=== PATIENT | female | born 1950 | race Caucasian/White ===

== ENCOUNTER → 2019-07-18 | Outpatient (CLI) | payer MEDICARE, OTHER ==
[~2019-07-18] MED LIST: ATOR40TA75 PO; ECOT81TA5 PO; MULTCAP PO; TIOT18INH INH
== END ==
LOC: M LABSMTC 11:46
PROVIDERS: ATTEND Anesthesiology
DX: Z01.818 Encounter for other preprocedural examination (principal); Z11.59 Encounter for screening for other viral diseases
CPT/HCPCS: C9803; U0003

== ENCOUNTER 2019-07-21 12:18 | Day surgery (SDC) | payer MEDICARE, OTHER ==
[~2019-07-21] VITALS: Ht 157.5 cm; Wt 69.3 kg
[~2019-07-21 12:18] MED LIST changes: +NS 1,000 ML IV SCH; +propofoL 200 MG/20 ML VIAL As Ordered ONE
[2019-07-21] MEDS ORDERED: LIDOCAINE 2% 100MG/5ML SDV (FOR ANES.) As Ordered ONE (12:50)
--- NOTE | 2019-07-21 13:35 | ROOR ---
Patient Name: Pearl Rodrigez Procedure Date: 07/21/2019 12:48 PM Date of : 1950 Age: 69 Room: [facility] Gender: Female Note Status: Finalized Procedure: Total Colonoscopy to Cecum + Hot Snare Polypectomy + Hemoclip Indications: Positive Cologuard test Providers: Atilio Mccain MD Referring MD: Karol Sebastian NP Requesting Provider: Medicines: Monitored Anesthesia Care Complications: No immediate complications. Procedure: Pre-Anesthesia Assessment: - The heart rate, respiratory rate, oxygen saturations, blood pressure, adequacy of pulmonary ventilation, and response to care were monitored throughout the procedure. The colonoscopy was performed without difficulty. The patient tolerated the procedure well. The quality of the bowel preparation was good. The Colonoscope was introduced through the anus and advanced to the cecum, identified by appendiceal orifice and ileocecal valve. Findings: The perianal and digital rectal examinations were normal. Non-bleeding internal hemorrhoids were found during retroflexion. The hemorrhoids were small and Grade I (internal hemorrhoids that do not prolapse). Multiple small and large-mouthed diverticula were found in the recto-sigmoid colon, sigmoid colon and descending colon. A small polyp was found at 10 cm proximal to the anus. The polyp was sessile. The polyp was removed with a hot snare. Resection and retrieval were complete. A medium polyp was found at 30 cm proximal to the anus. The polyp was semi-pedunculated. The polyp was removed with a hot snare. Resection and retrieval were complete. To prevent bleeding after the polypectomy, one hemostatic clip was successfully placed (MR conditional). There was no bleeding at the end of the procedure. The exam was otherwise without abnormality on direct and retroflexion views. Impression: - Non-bleeding internal hemorrhoids. - Diverticulosis in the recto-sigmoid colon, in the sigmoid colon and in the descending colon. - One small polyp at 10 cm proximal to the anus, removed with a hot snare. Resected and retrieved. - One medium polyp at 30 cm proximal to the anus, removed with a hot snare. Resected and retrieved. Clip (MR conditional) was placed. - The examination was otherwise normal on direct and retroflexion views. - The exam was otherwise normal to the cecum. Recommendation: - Patient has a contact number available for emergencies. The signs and symptoms of potential delayed complications were discussed with the patient. Return to normal activities tomorrow. Written discharge instructions were provided to the patient. - High fiber diet. - Discharge patient to home. - Continue present medications. - Await pathology results. - Telephone GI clinic for pathology results in 1 week. - Repeat colonoscopy in 4 years for surveillance based on pathology results. - Return to referring physician. - The findings and recommendations were discussed with the patient's family. Atilio Mccain MD Atilio Mccain MD 07/21/2019 1:35:21 PM Electronically signed by Atilio Mccain MD Number of Addenda: 0 Note Initiated On: 07/21/2019 12:48 PM Estimated Blood Loss: Estimated blood loss: none.
[2019-07-21 14:30] VITALS: BP 159/77
== END 2019-07-21 15:10 | disposition home or self-care (01) ==
LOC: M OPP 12:18
PROVIDERS: ATTEND Internal Medicine Gastroenterology
DX: D12.6 Benign neoplasm of colon, unspecified (principal); K64.0 First degree hemorrhoids; K57.30 Diverticulosis of large intestine without perforation or abscess without bleeding; R19.5 Other fecal abnormalities; J44.9 Chronic obstructive pulmonary disease, unspecified; F17.210 Nicotine dependence, cigarettes, uncomplicated; Z79.82 Long term (current) use of aspirin; Z79.899 Other long term (current) drug therapy; Z88.0 Allergy status to penicillin; Z88.5 Allergy status to narcotic agent

== ENCOUNTER → 2020-06-05 | Outpatient (CLI) | payer MEDICARE, OTHER ==
[~2020-06-05] MED LIST changes: -NS 1,000 ML IV SCH; -propofoL 200 MG/20 ML VIAL As Ordered ONE
--- NOTE | 2020-06-05 12:18 | REP ---
INDICATION: PAIN. COMPARISON: None TECHNIQUE: Three views of the right shoulder were performed. FINDINGS: The acromioclavicular and glenohumeral relationships are within normal limits. There is no acute fracture or destructive osseous lesion. IMPRESSION: Negative exam <Electronically signed by Darius Bear > 06/05/20 1216
== END ==
LOC: M WUC 11:30
PROVIDERS: ATTEND Nurse Practitioner Adult Health
DX: M25.511 Pain in right shoulder (principal)

== ENCOUNTER → 2021-01-03 | Outpatient (CLI) | payer MEDICARE, OTHER ==
--- NOTE | 2021-01-03 10:59 | REPMRS ---
Patient History The patient states she has not had a clinical breast exam in over a year. Patient is postmenopausal. No known family history of cancer. No Hormone Replacement Therapy Tomosynthesis is performed. Volpara breast density is b. [facility] lifetime risk of breast cancer 3.8%. Patient states no breast complaints today. Patient has signed MRS History Sheet. Digital Woman Screen Mammo: January 03, 2021 - Exam #: [id number] Bilateral CC and MLO view(s) were taken. Technologist: [employer] [facility] [employer] Front Office Assistant FINDINGS: There are scattered fibroglandular densities. There has been no change in the appearance of the mammogram from the prior studies. There is a mild amount of residual fibroglandular tissue which is fairly symmetric. There is no interval development of dominant mass, architectural distortion, or clustered microcalcification suggestive of malignancy. Assessment: BI-RADS/ACR category 1 mammogram. Negative Mammogram. Recommendation Routine screening mammogram in 1 year (for women over age 40). This mammogram was interpreted with the aid of an FDA-approved computer-aided dectection system. Electronically Signed By: Jak Saba MD 01/03/21 0486
== END ==
LOC: M WHC 09:06
PROVIDERS: ATTEND Nurse Practitioner Adult Health
DX: Z12.31 Encounter for screening mammogram for malignant neoplasm of breast (principal); Z78.0 Asymptomatic menopausal state

== ENCOUNTER → 2021-07-03 | Outpatient (CLI) | payer MEDICARE, OTHER | LOC: M RAD 08:29 | PROVIDERS: ATTEND Nurse Practitioner Adult Health | DX: Z12.2 Encounter for screening for malignant neoplasm of respiratory organs (principal); F17.210 Nicotine dependence, cigarettes, uncomplicated; R91.8 Other nonspecific abnormal finding of lung field; N20.0 Calculus of kidney ==

== ENCOUNTER → 2022-01-05 | Outpatient (CLI) | payer MEDICARE, OTHER | LOC: M WHC 09:37 | PROVIDERS: ATTEND Nurse Practitioner Adult Health | DX: Z12.31 Encounter for screening mammogram for malignant neoplasm of breast (principal) ==

== ENCOUNTER → 2022-01-06 | Outpatient (CLI) | payer MEDICARE, OTHER | LOC: M RAD 12:46 | PROVIDERS: ATTEND Internal Medicine Pulmonary Disease | DX: R91.8 Other nonspecific abnormal finding of lung field (principal); J47.9 Bronchiectasis, uncomplicated ==

== ENCOUNTER → 2023-01-11 | Outpatient (CLI) | payer MEDICARE, OTHER | LOC: M WHC 09:27 | PROVIDERS: ATTEND Nurse Practitioner Adult Health | DX: Z12.31 Encounter for screening mammogram for malignant neoplasm of breast (principal) ==

== ENCOUNTER → 2023-02-01 | Outpatient (CLI) | payer MEDICARE, OTHER | LOC: M PLAIMG 10:49 | PROVIDERS: ATTEND Internal Medicine Pulmonary Disease | DX: R91.8 Other nonspecific abnormal finding of lung field (principal); J43.9 Emphysema, unspecified; I25.10 Atherosclerotic heart disease of native coronary artery without angina pectoris; N20.0 Calculus of kidney; R59.0 Localized enlarged lymph nodes; K57.90 Diverticulosis of intestine, part unspecified, without perforation or abscess without bleeding; E27.9 Disorder of adrenal gland, unspecified ==

== ENCOUNTER → 2023-03-15 | Outpatient (CLI) | payer MEDICARE, OTHER | LOC: M PLARAD 12:47 | PROVIDERS: ATTEND Internal Medicine Pulmonary Disease | DX: R91.1 Solitary pulmonary nodule (principal) | CPT/HCPCS: 78815; A9552 ==

== ENCOUNTER → 2023-04-02 | Outpatient (CLI) | payer MEDICARE, OTHER | LOC: M PLAIMG 08:57 | PROVIDERS: ATTEND Internal Medicine Pulmonary Disease | DX: R91.8 Other nonspecific abnormal finding of lung field (principal) ==

== ENCOUNTER 2023-04-14 06:48 | Day surgery (SDC) | payer MEDICARE, OTHER ==
[~2023-04-14] VITALS: Ht 157.5 cm; Wt 67.6 kg
[~2023-04-14 06:48] MED LIST changes: +ACET1TAB55 PO; +OMEGCAP4 PO; +SODI2OPD OU; +THERTAB52 PO; +TREL1AER
[2023-04-14] MEDS ORDERED: EPINEPHrine 1MG/10ML SYRINGE 1.5IN As Ordered ONE (07:08)
[2023-04-14] MEDS: LR 1,000 ML IV SCH (07:42)
[2023-04-14] MEDS ORDERED: fentaNYL 100 MCG/2 ML INJECTION As Ordered ONE (08:07)
[2023-04-14] MEDS ORDERED: KETOROLAC 60MG 2ML VIAL As Ordered ONE (08:08)
[2023-04-14] MEDS ORDERED: LIDOCAINE 2% 100MG/5ML SDV (FOR ANES.) As Ordered ONE (08:08)
[2023-04-14] MEDS ORDERED: MIDAZOLAM INJ 2MG/2ML VIAL As Ordered ONE (08:08)
[2023-04-14] MEDS ORDERED: SUGAMMADEX SODIUM 500 MG/5 ML VIAL (BRIDION) As Ordered ONE (08:08)
[2023-04-14] MEDS ORDERED: propofoL 200 MG/20 ML VIAL As Ordered ONE (08:08)
[2023-04-14] MEDS ORDERED: ROCURONIUM BROMIDE 50MG/5ML VIAL As Ordered ONE (08:08)
[2023-04-14] MEDS ORDERED: ONDANSETRON 4MG 2ML VIAL As Ordered ONE (08:08)
[2023-04-14] MEDS: LIDOCAINE PRES-FREE 2% 10ML AMP INH ONE (08:38)
[2023-04-14] MEDS: ALBUTEROL SULFATE 2.5MG/0.5ML INH NEB SOLN INH ONE (08:38)
[2023-04-14] MEDS: CETACAINE SPRAY 5GM As Ordered ONE (09:20)
[2023-04-14] MEDS ORDERED: LR 1,000 ML IV SCH (10:10)
[2023-04-14] MEDS ORDERED: ONDANSETRON 4MG 2ML VIAL IV PRN (10:10)
[2023-04-14] MEDS ORDERED: fentaNYL 100 MCG/2 ML INJECTION IV PRN (10:10)
[2023-04-14 11:15] VITALS: BP 148/72; TEMP 97.6; O2SAT 95
== END 2023-04-14 11:15 | disposition home or self-care (01) ==
LOC: M SDC 06:48
PROVIDERS: ATTEND Internal Medicine Pulmonary Disease
DX: R91.8 Other nonspecific abnormal finding of lung field (principal); J43.1 Panlobular emphysema; F17.210 Nicotine dependence, cigarettes, uncomplicated; E04.1 Nontoxic single thyroid nodule; Z79.899 Other long term (current) drug therapy; I10 Essential (primary) hypertension; E78.5 Hyperlipidemia, unspecified; K21.9 Gastro-esophageal reflux disease without esophagitis; N20.0 Calculus of kidney; Z88.0 Allergy status to penicillin; Z88.5 Allergy status to narcotic agent
CPT/HCPCS: 31623; 31624; 31628; 71045; 76000; 88104; 88108; 88305; 88313; 93005; J0171; J2250; J2405; J3010

== ENCOUNTER 2023-05-21 13:40 | Outpatient (RCR) | payer MEDICARE, OTHER | END 2023-05-23 | LOC: M ONCR 13:40 | PROVIDERS: ATTEND General Practice | DX: Z51.0 Encounter for antineoplastic radiation therapy (principal); C34.11 Malignant neoplasm of upper lobe, right bronchus or lung ==

== ENCOUNTER → 2023-06-02 | Outpatient (CLI) | payer MEDICARE, OTHER | LOC: M RAD 13:59 | PROVIDERS: ATTEND Otolaryngology | DX: D44.0 Neoplasm of uncertain behavior of thyroid gland (principal) ==

== ENCOUNTER → 2023-08-02 | Outpatient (CLI) | payer MEDICARE, OTHER ==
[~2023-08-02] MED LIST changes: +ISOVUE-370 76% 100ML VIAL As Ordered ONE
== END ==
LOC: M RAD 09:51
PROVIDERS: ATTEND General Practice
DX: C34.11 Malignant neoplasm of upper lobe, right bronchus or lung (principal); J43.9 Emphysema, unspecified
CPT/HCPCS: 36415; 71260; 80053; Q9967

== ENCOUNTER → 2023-08-02 | Outpatient (CLI) | payer MEDICARE, OTHER ==
[~2023-08-02] MED LIST changes: -ISOVUE-370 76% 100ML VIAL As Ordered ONE
[2023-08-02 10:25] LABS: ALBUMIN 3.7 G/DL (3.2-5.2); ALKALINE PHOSPHATASE 73 U/L (46-116); ALT/SGPT 36 U/L (7.0-40); AST/SGOT 21 U/L (<34); BILIRUBIN,TOTAL 0.5 MG/DL (0.3-1.2); BLOOD UREA NITROGEN 14 MG/DL (9-23); CALCIUM LEVEL 9.7 MG/DL (8.3-10.6); CARBON DIOXIDE LEVEL 30 MMOL/L (20-31); CHLORIDE LEVEL 108 MMOL/L (98-107); CREATININE FOR GFR 0.67 MG/DL (0.55-1.30); GLOMERULAR FILTRATION RATE > 60.0 (>39); GLUCOSE, FASTING 109 MG/DL (74-106); POTASSIUM SERUM 4.6 MMOL/L (3.5-5.1); SODIUM LEVEL 141 MMOL/L (136-145); TOTAL PROTEIN 6.9 G/DL (5.7-8.2)
== END ==
LOC: M ONCM 09:17
PROVIDERS: ATTEND General Practice
DX: C34.90 Malignant neoplasm of unspecified part of unspecified bronchus or lung (principal)

== ENCOUNTER → 2023-08-06 | Outpatient (CLI) | payer MEDICARE, OTHER | LOC: M ONCR 13:46 | PROVIDERS: ATTEND General Practice | DX: C34.11 Malignant neoplasm of upper lobe, right bronchus or lung (principal); Z92.3 Personal history of irradiation; F17.210 Nicotine dependence, cigarettes, uncomplicated; Z71.2 Person consulting for explanation of examination or test findings; Z88.0 Allergy status to penicillin; Z88.1 Allergy status to other antibiotic agents; Z88.5 Allergy status to narcotic agent; Z79.899 Other long term (current) drug therapy; Z79.51 Long term (current) use of inhaled steroids ==

== ENCOUNTER → 2024-01-19 | Outpatient (CLI) | payer MEDICARE, OTHER | LOC: M WHC 10:16 | PROVIDERS: ATTEND Nurse Practitioner Adult Health | DX: Z12.31 Encounter for screening mammogram for malignant neoplasm of breast (principal); Z13.820 Encounter for screening for osteoporosis; M85.89 Other specified disorders of bone density and structure, multiple sites; R92.313 Mammographic fatty tissue density, bilateral breasts ==

== ENCOUNTER → 2024-02-02 | Outpatient (CLI) | payer MEDICARE, OTHER | LOC: M RAD 12:28 | PROVIDERS: ATTEND General Practice | DX: C34.11 Malignant neoplasm of upper lobe, right bronchus or lung (principal) ==

== ENCOUNTER → 2024-02-09 | Outpatient (CLI) | payer MEDICARE, OTHER | LOC: M ONCR 13:47 | PROVIDERS: ATTEND General Practice | DX: C34.11 Malignant neoplasm of upper lobe, right bronchus or lung (principal); J44.9 Chronic obstructive pulmonary disease, unspecified; F17.218 Nicotine dependence, cigarettes, with other nicotine-induced disorders; Z92.3 Personal history of irradiation; Z88.0 Allergy status to penicillin; Z88.1 Allergy status to other antibiotic agents; Z88.5 Allergy status to narcotic agent; Z79.51 Long term (current) use of inhaled steroids; Z79.899 Other long term (current) drug therapy ==

== ENCOUNTER → 2024-04-06 | Outpatient (CLI) | payer MEDICARE, OTHER | LOC: M WUC 14:13 | PROVIDERS: ATTEND Nurse Practitioner Adult Health | DX: Z85.118 Personal history of other malignant neoplasm of bronchus and lung (principal) ==

== ENCOUNTER → 2024-04-14 | Outpatient (CLI) | payer MEDICARE, OTHER | LOC: M ONCR 14:53 | PROVIDERS: ATTEND General Practice | DX: R20.8 Other disturbances of skin sensation (principal); Z92.3 Personal history of irradiation ==

== ENCOUNTER → 2024-07-05 | Outpatient (CLI) | payer MEDICARE, OTHER | LOC: M RAD 14:50 | PROVIDERS: ATTEND Otolaryngology | DX: E04.1 Nontoxic single thyroid nodule (principal) ==

== ENCOUNTER → 2024-11-14 | Outpatient (CLI) | payer MEDICARE, OTHER | LOC: M RAD 16:48 | PROVIDERS: ATTEND Internal Medicine Pulmonary Disease | DX: R91.8 Other nonspecific abnormal finding of lung field (principal) ==

== ENCOUNTER 2024-11-29 16:22 | Emergency (ER) | payer MEDICARE, OTHER ==
[~2024-11-29] VITALS: Ht 157.5 cm; Wt 64.8 kg
[~2024-11-29 16:22] MED LIST changes: -ISOVUE-370 76% 100 ML VIAL As Ordered ONE
[2024-11-29 16:45] VITALS: BP 166/72
[2024-11-29 17:06] LABS: BASO # 0.1 10^3/uL (0.0-0.2); BASO % 0.9 % (0.0-1.0); EOS # 0.2 10^3/uL (0.0-0.5); EOS % 2.3 % (0.0-3.0); LYMPH # 2.9 10^3/uL (1.5-5.0); LYMPH % 30.0 % (24.0-44.0); MONO # 0.6 10^3/uL (0.0-0.8); MONO % 6.6 % (2.0-8.0); NEUTROPHILS # 5.7 10^3/uL (1.5-8.5); NEUTROPHILS % 59.9 % (36.0-66.0); PLATELET COUNT, AUTOMATED 250 10^3/uL (150-450)
[2024-11-29 17:19] LABS: INR 0.92
[2024-11-29 17:28] LABS: ALT/SGPT 39.0 U/L (7.0-40); AST/SGOT 26.0 U/L (<34)
[2024-11-29 17:30] LABS: FREE T4 1.38 NG/DL (0.89-1.76)
[2024-11-29] MEDS ORDERED: PROHANCE 279.3MG/ML 15ML VIAL As Ordered ONE (21:34)
[2024-11-29 23:00] VITALS: BP 134/64; TEMP 97.1; O2SAT 93
== END 2024-11-29 23:07 | disposition home or self-care (01) ==
LOC: M ED 16:22
DX: D43.0 Neoplasm of uncertain behavior of brain, supratentorial (principal); G93.6 Cerebral edema; R47.01 Aphasia; R00.0 Tachycardia, unspecified; I44.4 Left anterior fascicular block; E78.5 Hyperlipidemia, unspecified; F17.210 Nicotine dependence, cigarettes, uncomplicated; Z88.0 Allergy status to penicillin; Z88.5 Allergy status to narcotic agent; Z79.1 Long term (current) use of non-steroidal anti-inflammatories (NSAID); Z79.899 Other long term (current) drug therapy; Z79.810 Long term (current) use of selective estrogen receptor modulators (SERMs); N39.0 Urinary tract infection, site not specified; G93.89 Other specified disorders of brain; I70.0 Atherosclerosis of aorta; J43.9 Emphysema, unspecified; R59.0 Localized enlarged lymph nodes; I65.21 Occlusion and stenosis of right carotid artery
CPT/HCPCS: 36415; 70496; 70498; 70553; 71045; 80047; 80076; 82565; 82607; 84439; 84443; 85025; 85610; 85730; 86618; 86780; 87468; 87469; 87478; 87484; 87801; 93005; 93041; 94760; 99285; A9576; Q9967

== ENCOUNTER → 2024-11-29 | Outpatient (CLI) | payer MEDICARE, OTHER ==
[~2024-11-29] MED LIST changes: +ISOVUE-370 76% 100 ML VIAL As Ordered ONE
[2024-11-29 19:38] LABS: VITAMIN B12 LEVEL 912 PG/ML (211-911)
== END ==
LOC: M RAD 15:39
PROVIDERS: ATTEND Nurse Practitioner Adult Health
DX: R47.01 Aphasia (principal); N39.0 Urinary tract infection, site not specified; G93.6 Cerebral edema; G93.89 Other specified disorders of brain; I70.0 Atherosclerosis of aorta; J43.9 Emphysema, unspecified; R59.0 Localized enlarged lymph nodes; I65.21 Occlusion and stenosis of right carotid artery

== ENCOUNTER → 2024-12-04 | Outpatient (CLI) | payer MEDICARE, OTHER | LOC: M PLARAD 14:42 | PROVIDERS: ATTEND Internal Medicine Pulmonary Disease | DX: R91.8 Other nonspecific abnormal finding of lung field (principal) | CPT/HCPCS: 78815; A9552 ==

== ENCOUNTER → 2024-12-30 | Outpatient (CLI) | payer MEDICARE, OTHER ==
[~2024-12-30] VITALS: Ht 157.5 cm; Wt 65.0 kg
[2024-12-30 08:35] VITALS: TEMP 97.4
[2024-12-30] MEDS: NS (Normal Saline) 0.9% 1,000 ML IV SCH (09:24)
[2024-12-30] MEDS: VANCOMYCIN HCL 1,000 MG, VIAL MATE ADAPTER 1 EACH in NS 250 ML IV ONE (09:24)
[2024-12-30] MEDS: MIDAZOLAM INJ 2 MG/2 ML VIAL IV PRN (09:25)
[2024-12-30] MEDS: LIDOCAINE 1% MDV 20 ML VIAL SC SCH (09:27)
[2024-12-30 10:15] VITALS: BP 125/68; O2SAT 94
== END ==
LOC: M IRPRO 08:26
PROVIDERS: ATTEND Student in an Organized Health Care Education/Training Program
DX: C34.90 Malignant neoplasm of unspecified part of unspecified bronchus or lung (principal)
CPT/HCPCS: 36561; 76937; 99152; J1642; J2250; J3010; J3373

== ENCOUNTER → 2025-01-15 | Outpatient (POV) | payer MEDICARE, OTHER ==
[~2025-01-15] MED LIST changes: +DEXA4TA PO; +FOLI1TAB11 PO; +LIDO30CR18 TOP; +ONDA-84 PO
== END ==
LOC: M IRPOV 13:00 → EDSTATUS 02-26 12:25
PROVIDERS: ATTEND Registered Nurse School
DX: C34.91 Malignant neoplasm of unspecified part of right bronchus or lung (principal); Z79.899 Other long term (current) drug therapy; Z88.0 Allergy status to penicillin; Z88.5 Allergy status to narcotic agent; Z80.1 Family history of malignant neoplasm of trachea, bronchus and lung